=== PATIENT | female | born 1955 | race Caucasian/White ===

== ENCOUNTER 2016-09-25 16:10 | Inpatient (IN) | payer OTHER ==
[~2016-09-25] VITALS: Ht 160 cm; Wt 129.4 kg
[~2016-09-25 16:10] MED LIST: ADVAIR; ADVAIR 100/501 DISK IH; ADVIL200 MG PO; ALAVERT10 MG PO; ALBUTEROL SULF8.5 GM IH; ALEVE220 M2 PO; ALEVE220 MG PO; AMLODIPINE BESY10 MG PO; AMLODIPINE BESYL5 MG PO; ASPIR 8181 M1 PO; ASPIR-TRIN325 M1 PO; ASPIRIN EC325 MG PO; ASPIRIN325 MG PO; AZITHROMYCIN500 M1 PO; BUPROPION XL300 MG; CENTRUM SILVER1 EAC3 PO; CENTRUM SILVER1 EAC4 PO; CIPRO500 MG PO; CIPROFLOXACIN500 M1 PO; CITALOPRAM HBR20 MG PO; CLOTRIMAZOLE10 MG PO; DIOVAN80 MG PO; FLONASE16 G1 BOTH NARES; GABAPENTIN300 MG PO; HYDROCHLOROTHIA25 MG PO; KEFLEX500 MG PO; LANTUS 10100 UNITS/ SC; LANTUS 10100 UNITS/ SQ; LASIX20 MG PO; LEVOFLOXACIN750 MG PO; LISINOPRIL-HCT1 EAC3 PO; LISINOPRIL-HCT1 EACH; LITE COAT ASPI325 M1 PO; LYRICA150 MG PO; MACROBID100 MG PO; MELOXICAM15 MG PO; METFORMIN HCL500 MG PO; MOBIC15 MG PO; MYCOSTATIN 100,60 ML PO; NAPROSYN500 MG PO; NEXIUM20 MG PO; NITROFURANTOIN100 M3 PO; NITROQUICK0.4 MG PO; NORCO 5/3251 TABLET PO; NORVASC10 MG PO; NORVASC5 MG PO; NOVOLOG MI100 UNIT/4 SC; NOVOLOG PE100 UNITS/ SC; NOVOLOG100 UNIT/1 SQ; NYSTATIN15 GM TP; OMEPRAZOLE20 MG PO; OXCARBAZEPINE300 MG PO; PERCOCET 5/31 TABLET PO; PRAVACHOL20 MG PO; PRAVACHOL40 MG PO; PRAVASTATIN SOD20 MG PO; PRAVASTATIN SOD40 MG PO; PREDNISONE20 MG PO; PREDNISONE50 MG PO; PRILO; PRILOSEC20 MG PO; PRINIVIL40 MG PO; PRINZIDE 20-121 EACH PO; PROAIR HFA8.5 GM IH; SALONPAS LARGE1 EACH TD; SYMBICORT60 INHALAT IH; TRAMADOL HCL50 MG; TRAMADOL HCL50 MG PO; TYLENOL ARTHRI650 MG PO; ULTRAM50 MG PO; VALIUM5 MG PO; VENTOLIN HFA18 GM IH; WELLBUTRIN XL300 MG PO; ZANTAC300 MG PO; ZOLPIDEM TARTRAT5 MG
[2016-09-25 16:40] LABS: POINT-OF-CARE METER ID UU13113778
[2016-09-25 19:59] LABS: HEMATOCRIT 48.5 % (36.0-46.0); MCH 28.7 PG (29.0-34.0); MEAN PLAT.VOLUME 11.7 uM^3 (9.5-12.4); PLATELET COUNT 264 K/uL (156-360); RBC DIS.WIDTH-CV 14.3 % (11.8-14.6); RBC DIS.WIDTH-SD 43.1 % (39-53); RED BLOOD COUNT 5.75 M/uL (3.80-5.20)
[2016-09-25 20:00] LABS: MCV 84.3 FL (83-99); WHITE BLOOD COUNT 18.4 K/uL (4.1-10.2)
[2016-09-25 20:12] LABS: CHLORIDE 102 mEq/L (99-109); POTASSIUM 3.6 mEq/L (3.7-5.4); SODIUM 140 mEq/L (136-147)
[2016-09-25 20:15] LABS: GLUCOSE 150 mg/dL (70-99)
[2016-09-25 20:16] LABS: ANION GAP 14 MEQ/L (2-14)
[2016-09-25 20:17] LABS: TOTAL BILIRUBIN 0.7 mg/dL (0.0-1.0)
[2016-09-25 20:18] LABS: ALKALINE PHOSPHATASE 352 IU/L (3-129); D-DIMER ELISA 0.74 mg/L FEU (< 0.57); GFR ESTIMATE (CALCULATED) 32 mL/min/; TROP-I INTERPRETATION NEGATIVE; TROPONIN-I < 0.01 ng/mL (0.0-0.30)
[2016-09-25 20:19] LABS: UREA NITROGEN (BUN) 33 mg/dL (9-23)
[2016-09-25 20:22] LABS: CREATINE KINASE 43 IU/L (1-294); LIPASE 8 U/L (1.0-51.0)
[2016-09-25] MEDS ORDERED: LITE COAT ASPI325 M1 PO (22:07)
[2016-09-25] MEDS ORDERED: CYMBALTA30 MG PO (22:10)
[2016-09-25] MEDS ORDERED: VENTOLIN HFA18 GM IH (22:11)
[2016-09-25] MEDS ORDERED: INCRUSE ELLI62.5 MCG IH (22:11)
[2016-09-25 22:32] LABS: ADD MIUA? YES; BILIRUBIN MODERATE; BLOOD NEGATIVE; COLOR ORANGE ((YELLOW)); GLUCOSE (STRIP) NEGATIVE; KETONES TRACE; LEUKOCYTES MODERATE; NITRITE NEGATIVE; PROTEIN (STRIP) 30; SPECIFIC GRAVITY 1.031 (1.000-1.030)
[2016-09-25 22:42] LABS: ICTOTEST NEGATIVE
[2016-09-25 23:19] LABS: EPITHELIAL CELLS 2+; MUCUS NONE SEEN; WHITE BLOOD CELLS 0-5 /HPF (0-5)
[2016-09-25 23:20] LABS: BACTERIA 2+; CASTS PRESENT /LPF; CRYSTALS NONE SEEN; UCUL ADDED? NO
[2016-09-25 23:22] LABS: YEAST-LIKE CELL > 50
[2016-09-26 01:52] LABS: POINT-OF-CARE METER ID UU13113800
[2016-09-26 01:55] LABS: URIC ACID 9.3 mg/dL (3.1-9.2)
[2016-09-26 03:37] VITALS: BP 116/56
[2016-09-26 07:52] LABS: HEMATOCRIT 40.3 % (36.0-46.0); MCH 29.4 PG (29.0-34.0); MCV 86.5 FL (83-99); RBC DIS.WIDTH-CV 14.2 % (11.8-14.6); RBC DIS.WIDTH-SD 43.6 % (39-53); RED BLOOD COUNT 4.66 M/uL (3.80-5.20); WHITE BLOOD COUNT 11.1 K/uL (4.1-10.2)
[2016-09-26 08:05] VITALS: BP 110/55
[2016-09-26 08:09] LABS: ANION GAP 12 MEQ/L (2-14); CHLORIDE 105 MEQ/L (99-109); GFR ESTIMATE (CALCULATED) 35 mL/min/; POTASSIUM 3.4 MEQ/L (3.7-5.4); SAMPLE HEMOLYSIS CHECK 0; SAMPLE ICTERIC CHECK 0; SAMPLE LIPEMIA CHECK 0; SODIUM 142 MEQ/L (136-147); UREA NITROGEN (BUN) 34 mg/dL (9-23)
[2016-09-26 08:12] LABS: GLUCOSE 85 mg/dL (70-99)
[2016-09-26 08:14] LABS: TROP-I INTERPRETATION NEGATIVE; TROPONIN-I < 0.01 ng/mL (0.0-0.30)
[2016-09-26 13:03] VITALS: BP 112/60
[2016-09-26 14:43] LABS: TROP-I INTERPRETATION NEGATIVE; TROPONIN-I < 0.01 ng/mL (0.0-0.30)
[2016-09-26 17:09] VITALS: BP 124/78
[2016-09-26 19:45] VITALS: BP 108/55
[2016-09-27 00:34] VITALS: BP 134/65
[2016-09-27 04:03] VITALS: BP 123/61
[2016-09-27 04:59] LABS: CHLORIDE 107 mEq/L (99-109); SODIUM 139 mEq/L (136-147)
[2016-09-27 05:02] LABS: ANION GAP 10 MEQ/L (2-14)
[2016-09-27 05:04] LABS: ALKALINE PHOSPHATASE 283 IU/L (3-129)
[2016-09-27 05:06] LABS: UREA NITROGEN (BUN) 24 mg/dL (9-23)
[2016-09-27 05:22] LABS: GLUCOSE 147 mg/dL (70-99)
[2016-09-27 05:36] LABS: GFR ESTIMATE (CALCULATED) > 59 mL/min/; TOTAL BILIRUBIN 0.5 mg/dL (0.0-1.0)
[2016-09-27 08:00] VITALS: BP 121/58
[2016-09-27] MEDS ORDERED: CIPRO250 MG PO (08:08)
[2016-09-27 08:46] LABS: EOSINOPHIL (%) 3.5 % (0-5); EOSINOPHIL COUNT 0.3 K/uL (0-0.3); HEMATOCRIT 41.3 % (36.0-46.0); IMMATURE GRANULOCYTE (%) 0.2 % (0.0-0.7); LYMPHOCYTE COUNT 2.8 K/uL (1.0-2.8); MCH 28.9 PG (29.0-34.0); MCHC 32.9 G/DL (30.0-36.0); MCV 87.9 FL (83-99); MONOCYTE (%) 9.2 % (3-12); MONOCYTE COUNT 0.7 K/uL (0-0.8); NEUTROPHIL (%) 52.2 % (45-76); NEUTROPHIL COUNT 4.2 K/uL (1.8-6.4); RBC DIS.WIDTH-CV 14.3 % (11.8-14.6); RBC DIS.WIDTH-SD 45.6 % (39-53); WHITE BLOOD COUNT 8.1 K/uL (4.1-10.2)
[2016-09-27 12:53] LABS: MEAN PLAT.VOLUME 12.2 uM^3 (9.5-12.4); PLAT.SUFFICIENCY ADEQUATE; PLATELET COUNT 189 K/uL (156-360); USER ID TLW
== END 2016-09-27 10:37 | disposition home health service (06) | DRG 683 ==
LOC: EME 16:10 → EDOF 09-26 01:10 → 2EAST 09-26 02:11
PROVIDERS: Hospitalist; Pediatrics; Physician Assistant
DX: N17.9 Acute kidney failure, unspecified (principal); N39.0 Urinary tract infection, site not specified; E86.0 Dehydration; E87.6 Hypokalemia; E66.01 Morbid (severe) obesity due to excess calories; Z68.43 Body mass index [BMI] 50.0-59.9, adult; E11.9 Type 2 diabetes mellitus without complications; I10 Essential (primary) hypertension; J44.9 Chronic obstructive pulmonary disease, unspecified; F32.9 Major depressive disorder, single episode, unspecified; G89.29 Other chronic pain; M54.30 Sciatica, unspecified side; R07.9 Chest pain, unspecified; R29.6 Repeated falls; R42 Dizziness and giddiness; E78.5 Hyperlipidemia, unspecified; K21.9 Gastro-esophageal reflux disease without esophagitis; R00.0 Tachycardia, unspecified; G47.30 Sleep apnea, unspecified; Z91.19 Patient's noncompliance with other medical treatment and regimen; Z79.4 Long term (current) use of insulin; Z87.891 Personal history of nicotine dependence; Z91.041 Radiographic dye allergy status
CPT/HCPCS: 71020; 71250; 78582; 80048; 80053; 81003; 82436; 82550 91; 82948; 83605; 83690; 84133; 84300; 84484; 84550; 85025; 85027; 85379; 87040; 87086; 87106; 93005; 93970; 94640; 94640 76; 99202; 99281; 99285; A9540; A9567; J0696; J1650; J1815; J7030; J7050

== ENCOUNTER 2017-04-04 10:48 | Emergency (ER) | payer OTHER ==
[~2017-04-04] VITALS: Ht 160 cm; Wt 118.2 kg
[~2017-04-04 10:48] MED LIST changes: +CIPRO250 MG PO; +CYMBALTA30 MG PO; +INCRUSE ELLI62.5 MCG IH
[2017-04-04 11:57] LABS: HEMATOCRIT 43.5 % (36.0-46.0); MCH 29.9 PG (29.0-34.0); MCHC 33.1 G/DL (30.0-36.0); MCV 90.4 FL (83-99); PLATELET COUNT 232 K/uL (156-360); RBC DIS.WIDTH-CV 13.2 % (11.8-14.6); RBC DIS.WIDTH-SD 43.9 % (39-53); RED BLOOD COUNT 4.81 M/uL (3.80-5.20)
[2017-04-04 12:16] LABS: CHLORIDE 101 mEq/L (99-109); POTASSIUM 3.9 mEq/L (3.7-5.4); SODIUM 137 mEq/L (136-147)
[2017-04-04 12:17] LABS: GLUCOSE 276 mg/dL (70-99)
[2017-04-04 12:19] LABS: ANION GAP 14 MEQ/L (2-14)
[2017-04-04 12:21] LABS: GFR ESTIMATE (CALCULATED) 40 mL/min/
[2017-04-04 12:22] LABS: UREA NITROGEN (BUN) 35 mg/dL (9-23)
[2017-04-04 13:44] LABS: TOTAL BILIRUBIN 0.4 mg/dL (0.0-1.0)
[2017-04-04 13:45] LABS: ALKALINE PHOSPHATASE 317 IU/L (3-129)
[2017-04-04 13:48] LABS: DIRECT BILIRUBIN 0.2 mg/dL (0.0-0.3)
[2017-04-04 13:49] LABS: LIPASE 9 U/L (1.0-51.0)
[2017-04-04 13:50] LABS: TROP-I INTERPRETATION NEGATIVE; TROPONIN-I < 0.01 ng/mL (0.0-0.30)
[2017-04-04 17:25] LABS: ADD MIUA? YES; BILIRUBIN NEGATIVE; BLOOD NEGATIVE; COLOR AMBER ((YELLOW)); GLUCOSE (STRIP) 50; KETONES NEGATIVE; LEUKOCYTES MODERATE; NITRITE NEGATIVE; PROTEIN (STRIP) 30; SPECIFIC GRAVITY 1.023 (1.000-1.030); UROBILINOGEN 0.2 MG/DL (0.2-1.0)
[2017-04-04 18:17] LABS: RED BLOOD CELLS RARE /HPF (0-5)
[2017-04-04 18:19] LABS: BACTERIA 1+ /HPF; CASTS NONE SEEN /LPF; CRYSTALS NONE SEEN; EPITHELIAL CELLS 1+ /HPF; MUCUS 1+ /LPF; OTHER BUDDING YEAST; UCUL ADDED? NO; WHITE BLOOD CELLS 30-40 /HPF (0-5)
[2017-04-04 19:45] LABS: CHLORIDE 105 mEq/L (99-109); POTASSIUM 4.2 mEq/L (3.7-5.4); SODIUM 140 mEq/L (136-147)
[2017-04-04 19:47] LABS: GLUCOSE 179 mg/dL (70-99)
[2017-04-04 19:48] LABS: ANION GAP 14 MEQ/L (2-14)
[2017-04-04 19:50] LABS: GFR ESTIMATE (CALCULATED) > 59 mL/min/
[2017-04-04 19:51] LABS: UREA NITROGEN (BUN) 34 mg/dL (9-23)
[2017-04-04] MEDS ORDERED: BACTRIM,SEPT1 TABLET PO (21:59)
[2017-04-04 22:11] VITALS: BP 111/48
== END 2017-04-04 22:12 | disposition home or self-care (01) ==
LOC: EME 10:48 → RME 10:48
PROVIDERS: Emergency Medicine; Physician Assistant Medical
DX: N39.0 Urinary tract infection, site not specified (principal); E86.0 Dehydration; N17.9 Acute kidney failure, unspecified; R42 Dizziness and giddiness; I25.2 Old myocardial infarction; K21.9 Gastro-esophageal reflux disease without esophagitis; J44.9 Chronic obstructive pulmonary disease, unspecified; E11.9 Type 2 diabetes mellitus without complications; Z79.4 Long term (current) use of insulin; Z87.891 Personal history of nicotine dependence
CPT/HCPCS: 70450; 80048; 80048 91; 80076; 81003; 83690; 84484; 85027; 93005; 99281; 99285; J0696; J7030; J7050

== ENCOUNTER 2017-05-29 15:32 | Emergency (ER) | payer OTHER ==
[~2017-05-29] VITALS: Ht 160 cm; Wt 118.1 kg
[~2017-05-29 15:32] MED LIST changes: +BACTRIM,SEPT1 TABLET PO
[2017-05-29 16:01] LABS: POINT-OF-CARE METER ID UU13113702
[2017-05-29 16:24] LABS: POINT-OF-CARE METER ID UU13113702
[2017-05-29 16:40] LABS: POINT-OF-CARE METER ID UU13113702
[2017-05-29 16:54] LABS: BASOPHIL COUNT 0.1 K/uL (0-0.1); EOSINOPHIL (%) 0.5 % (0-5); EOSINOPHIL COUNT 0.1 K/uL (0-0.3); HEMATOCRIT 44.1 % (36.0-46.0); IMMATURE GRANULOCYTE (%) 1.6 % (0.0-0.7); IMMATURE GRANULOCYTE COUNT 0.4 K/uL; INSTRUMENT ABS NEUTROPHIL CT 18.1 K/uL; LYMPHOCYTE COUNT 3.1 K/uL (1.0-2.8); MCH 29.4 PG (29.0-34.0); MCHC 32.4 G/DL (30.0-36.0); MCV 90.6 FL (83-99); MEAN PLAT.VOLUME 10.4 uM^3 (9.5-12.4); MONOCYTE (%) 8.5 % (3-12); NEUTROPHIL (%) 76.1 % (45-76); NEUTROPHIL COUNT 18.1 K/uL (1.8-6.4); PLATELET COUNT 256 K/uL (156-360); RBC DIS.WIDTH-CV 13.3 % (11.8-14.6); RBC DIS.WIDTH-SD 44.8 % (39-53); RED BLOOD COUNT 4.87 M/uL (3.80-5.20); WHITE BLOOD COUNT 23.8 K/uL (4.1-10.2)
[2017-05-29 17:03] LABS: CHLORIDE 104 mEq/L (99-109); POTASSIUM 4.2 mEq/L (3.7-5.4); SODIUM 141 mEq/L (136-147)
[2017-05-29 17:04] LABS: GLUCOSE 159 mg/dL (70-99)
[2017-05-29 17:06] LABS: ANION GAP 15 MEQ/L (2-14)
[2017-05-29 17:08] LABS: GFR ESTIMATE (CALCULATED) 40 mL/min/
[2017-05-29 17:09] LABS: UREA NITROGEN (BUN) 33 mg/dL (9-23)
[2017-05-29 17:33] LABS: POINT-OF-CARE METER ID UU13113702
[2017-05-29 18:37] LABS: POINT-OF-CARE METER ID UU13113702
[2017-05-29 19:07] LABS: ADD MIUA? YES; BILIRUBIN SMALL; BLOOD SMALL; COLOR AMBER ((YELLOW)); GLUCOSE (STRIP) 150; KETONES NEGATIVE; LEUKOCYTES NEGATIVE; NITRITE NEGATIVE; PROTEIN (STRIP) 30; SPECIFIC GRAVITY 1.024 (1.000-1.030)
[2017-05-29 19:14] LABS: BASOPHIL COUNT 0.1 K/uL (0-0.1); EOSINOPHIL (%) 0.8 % (0-5); EOSINOPHIL COUNT 0.2 K/uL (0-0.3); HEMATOCRIT 43.7 % (36.0-46.0); IMMATURE GRANULOCYTE (%) 0.9 % (0.0-0.7); IMMATURE GRANULOCYTE COUNT 0.2 K/uL; INSTRUMENT ABS NEUTROPHIL CT 14.4 K/uL; LYMPHOCYTE COUNT 3.5 K/uL (1.0-2.8); MCH 29.4 PG (29.0-34.0); MCHC 32.7 G/DL (30.0-36.0); MCV 89.7 FL (83-99); MEAN PLAT.VOLUME 10.4 uM^3 (9.5-12.4); MONOCYTE COUNT 1.6 K/uL (0-0.8); NEUTROPHIL (%) 72.3 % (45-76); NEUTROPHIL COUNT 14.4 K/uL (1.8-6.4); PLATELET COUNT 265 K/uL (156-360); RBC DIS.WIDTH-CV 13.4 % (11.8-14.6); RBC DIS.WIDTH-SD 44.4 % (39-53); RED BLOOD COUNT 4.87 M/uL (3.80-5.20); WHITE BLOOD COUNT 19.9 K/uL (4.1-10.2)
[2017-05-29 19:20] LABS: BACTERIA RARE /HPF; BUDDING YEAST 2+; EPITHELIAL CELLS RARE /HPF; HYALINE CASTS 30-40 /LPF; MUCUS TRACE /LPF; RED BLOOD CELLS 0-5 /HPF (0-5); WHITE BLOOD CELLS 0-5 /HPF (0-5)
[2017-05-29 20:37] LABS: POINT-OF-CARE METER ID UU13113702
[2017-05-29 20:42] VITALS: BP 116/63
[2017-05-29] MEDS ORDERED: METFORMIN HCL500 M1 PO (20:45)
[2017-05-29] MEDS ORDERED: CITALOPRAM HBR20 MG PO (20:45)
[2017-05-29] MEDS ORDERED: CETIRIZINE HCL10 M2 PO (20:46)
== END 2017-05-29 20:49 | disposition home or self-care (01) ==
LOC: EME 15:32
PROVIDERS: Emergency Medicine
DX: T38.3X1A Poisoning by insulin and oral hypoglycemic [antidiabetic] drugs, accidental (unintentional), initial encounter (principal); E11.649 Type 2 diabetes mellitus with hypoglycemia without coma; Z79.4 Long term (current) use of insulin; I10 Essential (primary) hypertension; J44.9 Chronic obstructive pulmonary disease, unspecified; Z79.82 Long term (current) use of aspirin; Z87.891 Personal history of nicotine dependence
CPT/HCPCS: 71010; 80048; 81003; 82948; 85025; 85025 91; 99281; 99285

== ENCOUNTER 2017-06-12 14:27 | Emergency (ER) | payer OTHER ==
[~2017-06-12] VITALS: Ht 160 cm; Wt 125.0 kg
[~2017-06-12 14:27] MED LIST changes: +CETIRIZINE HCL10 M2 PO; +METFORMIN HCL500 M1 PO
[2017-06-12 14:50] LABS: POINT-OF-CARE METER ID UU13113778
[2017-06-12 15:27] LABS: POINT-OF-CARE METER ID UU13113702
[2017-06-12 16:06] LABS: EOSINOPHIL (%) 1.1 % (0-5); EOSINOPHIL COUNT 0.1 K/uL (0-0.3); IMMATURE GRANULOCYTE (%) 0.7 % (0.0-0.7); IMMATURE GRANULOCYTE COUNT 0.1 K/uL; INSTRUMENT ABS NEUTROPHIL CT 9.9 K/uL; LYMPHOCYTE COUNT 1.4 K/uL (1.0-2.8); MCH 29.8 PG (29.0-34.0); MCHC 31.9 G/DL (30.0-36.0); MCV 93.4 FL (83-99); MEAN PLAT.VOLUME 10.1 uM^3 (9.5-12.4); MONOCYTE (%) 4.8 % (3-12); MONOCYTE COUNT 0.6 K/uL (0-0.8); NEUTROPHIL COUNT 9.9 K/uL (1.8-6.4); PLATELET COUNT 190 K/uL (156-360); RBC DIS.WIDTH-CV 13.9 % (11.8-14.6); RBC DIS.WIDTH-SD 47.4 % (39-53); RED BLOOD COUNT 3.96 M/uL (3.80-5.20); WHITE BLOOD COUNT 12.1 K/uL (4.1-10.2)
[2017-06-12 16:12] LABS: CHLORIDE 108 mEq/L (99-109); POTASSIUM 5.6 mEq/L (3.7-5.4); SODIUM 140 mEq/L (136-147)
[2017-06-12 16:14] LABS: GLUCOSE 259 mg/dL (70-99)
[2017-06-12 16:15] LABS: ANION GAP 11 MEQ/L (2-14)
[2017-06-12 16:16] LABS: TOTAL BILIRUBIN 0.3 mg/dL (0.0-1.0)
[2017-06-12 16:17] LABS: ALKALINE PHOSPHATASE 492 IU/L (3-129)
[2017-06-12 16:18] LABS: GFR ESTIMATE (CALCULATED) 48 mL/min/
[2017-06-12 16:19] LABS: UREA NITROGEN (BUN) 28 mg/dL (9-23)
[2017-06-12 16:26] LABS: TROP-I INTERPRETATION NEGATIVE; TROPONIN-I < 0.01 ng/mL (0.0-0.30)
[2017-06-12 19:36] LABS: ADD MIUA? YES; BILIRUBIN NEGATIVE; BLOOD NEGATIVE; COLOR YELLOW ((YELLOW)); GLUCOSE (STRIP) 150; KETONES NEGATIVE; LEUKOCYTES TRACE; NITRITE NEGATIVE; PROTEIN (STRIP) NEGATIVE; SPECIFIC GRAVITY 1.025 (1.000-1.030)
[2017-06-12 20:19] LABS: POINT-OF-CARE METER ID UU13113702
[2017-06-12 20:19] LABS: BACTERIA 1+ /HPF; EPITHELIAL CELLS 1+ /HPF; MUCUS TRACE /LPF; RED BLOOD CELLS NONE SEEN /HPF (0-5); UCUL ADDED? NO; WHITE BLOOD CELLS RARE /HPF (0-5)
[2017-06-12 20:20] LABS: CASTS PRESENT /LPF; CRYSTALS NONE SEEN; HYALINE CASTS 0-5 /LPF
[2017-06-12] MEDS ORDERED: LEVAQUIN500 MG PO (21:12)
[2017-06-12 21:30] VITALS: BP 113/68
== END 2017-06-12 21:31 | disposition home or self-care (01) ==
LOC: EME 14:27
PROVIDERS: Emergency Medicine
DX: E11.649 Type 2 diabetes mellitus with hypoglycemia without coma (principal); N39.0 Urinary tract infection, site not specified; I25.2 Old myocardial infarction; Z86.74 Personal history of sudden cardiac arrest; I10 Essential (primary) hypertension; K21.9 Gastro-esophageal reflux disease without esophagitis; J44.9 Chronic obstructive pulmonary disease, unspecified; F41.9 Anxiety disorder, unspecified; F32.9 Major depressive disorder, single episode, unspecified; Z86.73 Personal history of transient ischemic attack (TIA), and cerebral infarction without residual deficits; Z79.4 Long term (current) use of insulin; Z87.891 Personal history of nicotine dependence
CPT/HCPCS: 74176; 80053; 81003; 82948; 84484; 85025; 87651 90; 93005; 99281; 99285; J7030

== ENCOUNTER 2017-09-18 18:40 | Emergency (ER) | payer OTHER ==
[~2017-09-18] VITALS: Ht 160 cm; Wt 130.4 kg
[~2017-09-18 18:40] MED LIST changes: +GABAPENTIN600 MG PO; +LEVAQUIN500 MG PO; +METHOCARBAMOL500 MG PO; +MIDODRINE HCL5 MG PO; +MYCELEX10 MG PO; +NOVOLOG 10100 UNITS/ SC; +VITAMIN B-12250 MCG PO; +VITAMIN D32000 UNI1 PO
[2017-09-18 22:41] LABS: BASOPHIL (%) 0.5 % (0-1); BASOPHIL COUNT 0.1 K/uL (0-0.1); EOSINOPHIL (%) 3.1 % (0-5); EOSINOPHIL COUNT 0.6 K/uL (0-0.3); HEMATOCRIT 41.6 % (36.0-46.0); HEMOGLOBIN 13.6 G/DL (11.9-15.5); IMMATURE GRANULOCYTE (%) 0.8 % (0.0-0.7); LYMPHOCYTE (%) 28.6 % (15-42); LYMPHOCYTE COUNT 5.4 K/uL (1.0-2.8); MCH 29.2 PG (29.0-34.0); MCHC 32.7 G/DL (30.0-36.0); MCV 89.3 FL (83-99); MONOCYTE (%) 5.6 % (3-12); MONOCYTE COUNT 1.1 K/uL (0-0.8); NEUTROPHIL (%) 61.4 % (45-76); NEUTROPHIL COUNT 11.6 K/uL (1.8-6.4); PLATELET COUNT 252 K/uL (156-360); RBC DIS.WIDTH-CV 14.3 % (11.8-14.6); RBC DIS.WIDTH-SD 46.5 % (39-53); RED BLOOD COUNT 4.66 M/uL (3.80-5.20); WHITE BLOOD COUNT 18.9 K/uL (4.1-10.2)
[2017-09-18 22:54] LABS: CHLORIDE 103 mEq/L (99-109); POTASSIUM 4.2 mEq/L (3.7-5.4); SODIUM 139 mEq/L (136-147)
[2017-09-18 22:54] LABS: APPEARANCE SL.HAZY ((CLEAR)); BILIRUBIN SMALL; BLOOD NEGATIVE; COLOR AMBER ((YELLOW)); GLUCOSE (STRIP) NEGATIVE; KETONES NEGATIVE; LEUKOCYTES NEGATIVE; NITRITE NEGATIVE; PROTEIN (STRIP) NEGATIVE; SPECIFIC GRAVITY 1.026 (1.000-1.030)
[2017-09-18 22:56] LABS: GLUCOSE 158 mg/dL (70-99)
[2017-09-18 23:00] LABS: CREATININE 2.1 mg/dL (0.6-1.3); GFR ESTIMATE (CALCULATED) 25 mL/min/
[2017-09-18 23:01] LABS: UREA NITROGEN (BUN) 44 mg/dL (9-23)
[2017-09-18 23:18] LABS: BACTERIA 1+ /HPF; EPITHELIAL CELLS 2+ /HPF; MUCUS 1+ /LPF; RED BLOOD CELLS 0-5 /HPF (0-5); WHITE BLOOD CELLS 0-5 /HPF (0-5)
[2017-09-18 23:19] LABS: AMORPHOUS URATES CRYSTALS 2+
[2017-09-19] MEDS ORDERED: BACTRIM,SEPT1 TABLET PO (01:23)
[2017-09-19] MEDS ORDERED: KEFLEX500 MG PO (01:23)
[2017-09-19 01:31] VITALS: BP 96/72
== END 2017-09-19 01:32 | disposition home or self-care (01) ==
LOC: EME 18:40
PROVIDERS: Physician Assistant
DX: N28.9 Disorder of kidney and ureter, unspecified (principal); E86.0 Dehydration; S30.811A Abrasion of abdominal wall, initial encounter; L08.9 Local infection of the skin and subcutaneous tissue, unspecified; R07.89 Other chest pain; X58.XXXA Exposure to other specified factors, initial encounter; E11.9 Type 2 diabetes mellitus without complications; I11.0 Hypertensive heart disease with heart failure; I50.9 Heart failure, unspecified; Z79.4 Long term (current) use of insulin; E66.01 Morbid (severe) obesity due to excess calories; Z68.43 Body mass index [BMI] 50.0-59.9, adult; J44.9 Chronic obstructive pulmonary disease, unspecified; I25.2 Old myocardial infarction; F32.9 Major depressive disorder, single episode, unspecified; F41.9 Anxiety disorder, unspecified; K21.9 Gastro-esophageal reflux disease without esophagitis; Z86.74 Personal history of sudden cardiac arrest; Z86.73 Personal history of transient ischemic attack (TIA), and cerebral infarction without residual deficits; Z79.82 Long term (current) use of aspirin; Z88.8 Allergy status to other drugs, medicaments and biological substances; Z87.891 Personal history of nicotine dependence
CPT/HCPCS: 71250; 74176; 80048; 81003; 83605; 85025 91; 87040; 99281; 99284

== ENCOUNTER 2017-11-05 13:23 | Emergency (ER) | payer OTHER ==
[~2017-11-05] VITALS: Ht 160 cm; Wt 131.5 kg
[2017-11-05 17:53] LABS: HEMATOCRIT 36.1 % (36.0-46.0); MCH 30.3 PG (29.0-34.0); MCHC 33.2 G/DL (30.0-36.0); MCV 91.2 FL (83-99); PLATELET COUNT 170 K/uL (156-360); RBC DIS.WIDTH-CV 14.9 % (11.8-14.6); RED BLOOD COUNT 3.96 M/uL (3.80-5.20); WHITE BLOOD COUNT 9.5 K/uL (4.1-10.2)
[2017-11-05 18:02] LABS: ALBUMIN 3.5 g/dL (3.2-4.8); CHLORIDE 102 mEq/L (99-109); POTASSIUM 4.1 mEq/L (3.7-5.4); SODIUM 138 mEq/L (136-147)
[2017-11-05 18:04] LABS: GLUCOSE 273 mg/dL (70-99)
[2017-11-05 18:06] LABS: TOTAL BILIRUBIN 0.3 mg/dL (0.0-1.0)
[2017-11-05 18:08] LABS: ALKALINE PHOSPHATASE 373 IU/L (3-129); CREATININE 0.9 mg/dL (0.6-1.3); GFR ESTIMATE (CALCULATED) > 59 mL/min/
[2017-11-05 18:09] LABS: UREA NITROGEN (BUN) 16 mg/dL (9-23)
[2017-11-05 18:10] LABS: AST (GOT) 22 IU/L (2-34)
[2017-11-05 18:11] LABS: ALT (GPT) 22 IU/L (3-49)
[2017-11-05 18:16] LABS: TROP-I INTERPRETATION NEGATIVE; TROPONIN-I 0.01 ng/mL (0.0-0.30)
[2017-11-05 19:56] LABS: APPEARANCE SL.HAZY ((CLEAR)); BILIRUBIN NEGATIVE; BLOOD SMALL; COLOR YELLOW ((YELLOW)); GLUCOSE (STRIP) >=500; KETONES NEGATIVE; LEUKOCYTES MODERATE; NITRITE NEGATIVE; PROTEIN (STRIP) NEGATIVE; SPECIFIC GRAVITY 1.028 (1.000-1.030); UROBILINOGEN 0.2 MG/DL (0.2-1.0)
[2017-11-05 20:26] LABS: BACTERIA 2+ /HPF; EPITHELIAL CELLS 2+ /HPF; MUCUS NONE SEEN /LPF; OTHER BUDDING YEAST; UCUL ADDED? YES; WHITE BLOOD CELLS 15-20 /HPF (0-5)
[2017-11-05] MEDS ORDERED: MOTRIN600 MG PO (20:59)
[2017-11-05] MEDS ORDERED: KEFLEX500 MG PO (20:59)
[2017-11-05 21:13] VITALS: BP 154/91
== END 2017-11-05 21:14 | disposition home or self-care (01) ==
LOC: EME 13:23
PROVIDERS: Physician Assistant
DX: S06.0X0A Concussion without loss of consciousness, initial encounter (principal); R10.12 Left upper quadrant pain; M79.1 Myalgia; W01.0XXA Fall on same level from slipping, tripping and stumbling without subsequent striking against object, initial encounter; E11.9 Type 2 diabetes mellitus without complications; Z79.4 Long term (current) use of insulin; Z79.82 Long term (current) use of aspirin; I11.0 Hypertensive heart disease with heart failure; I50.9 Heart failure, unspecified; J44.9 Chronic obstructive pulmonary disease, unspecified; K21.9 Gastro-esophageal reflux disease without esophagitis; Z86.74 Personal history of sudden cardiac arrest; F32.9 Major depressive disorder, single episode, unspecified; F41.9 Anxiety disorder, unspecified; Z87.891 Personal history of nicotine dependence
CPT/HCPCS: 70450; 71046; 74177; 80053; 81003; 84484; 85027; 87086; 93005; 99281; 99284; J7030

== ENCOUNTER 2017-12-17 13:43 | Inpatient (IN) | payer OTHER ==
[~2017-12-17] VITALS: Ht 160 cm; Wt 124.5 kg
[~2017-12-17 13:43] MED LIST changes: -CYMBALTA30 MG PO; +CYMBALTA60 MG PO; +MOTRIN600 MG PO; -VITAMIN B-12250 MCG PO; +VITAMIN B-122500 MCG SL
[2017-12-17 15:13] LABS: BASOPHIL (%) 0.6 % (0-1); BASOPHIL COUNT 0.1 K/uL (0-0.1); EOSINOPHIL (%) 1.7 % (0-5); EOSINOPHIL COUNT 0.2 K/uL (0-0.3); HEMATOCRIT 43.2 % (36.0-46.0); HEMOGLOBIN 14.5 G/DL (11.9-15.5); IMMATURE GRANULOCYTE (%) 0.4 % (0.0-0.7); LYMPHOCYTE (%) 30.5 % (15-42); LYMPHOCYTE COUNT 4.4 K/uL (1.0-2.8); MCH 29.2 PG (29.0-34.0); MCHC 33.6 G/DL (30.0-36.0); MCV 86.9 FL (83-99); MONOCYTE (%) 5.9 % (3-12); MONOCYTE COUNT 0.9 K/uL (0-0.8); NEUTROPHIL (%) 60.9 % (45-76); NEUTROPHIL COUNT 8.9 K/uL (1.8-6.4); PLATELET COUNT 215 K/uL (156-360); RBC DIS.WIDTH-CV 13.2 % (11.8-14.6); RBC DIS.WIDTH-SD 41.9 % (39-53); RED BLOOD COUNT 4.97 M/uL (3.80-5.20); WHITE BLOOD COUNT 14.5 K/uL (4.1-10.2)
[2017-12-17 15:22] LABS: ALBUMIN 3.7 g/dL (3.2-4.8); CHLORIDE 96 mEq/L (99-109); POTASSIUM 3.8 mEq/L (3.7-5.4); SODIUM 135 mEq/L (136-147)
[2017-12-17 15:25] LABS: TOTAL PROTEIN 6.2 g/dL (6.4-8.3)
[2017-12-17 15:27] LABS: TOTAL BILIRUBIN 0.5 mg/dL (0.0-1.0)
[2017-12-17 15:28] LABS: ALKALINE PHOSPHATASE 335 IU/L (3-129); CREATININE 1.4 mg/dL (0.6-1.3); GFR ESTIMATE (CALCULATED) 40 mL/min/
[2017-12-17 15:29] LABS: UREA NITROGEN (BUN) 23 mg/dL (9-23)
[2017-12-17 15:30] LABS: AST (GOT) 14 IU/L (2-34)
[2017-12-17 15:31] LABS: ALT (GPT) 14 IU/L (3-49)
[2017-12-17 15:32] LABS: LIPASE 9 U/L (1.0-51.0)
[2017-12-17 15:34] LABS: TROP-I INTERPRETATION NEGATIVE; TROPONIN-I 0.02 ng/mL (0.0-0.30)
[2017-12-17 15:37] LABS: GLUCOSE 413 mg/dL (70-99)
[2017-12-17 19:44] LABS: APPEARANCE CLOUDY ((CLEAR)); BILIRUBIN NEGATIVE; BLOOD SMALL; COLOR YELLOW ((YELLOW)); GLUCOSE (STRIP) >=500; KETONES 5; LEUKOCYTES MODERATE; NITRITE NEGATIVE; PROTEIN (STRIP) 30; UROBILINOGEN 0.2 MG/DL (0.2-1.0)
[2017-12-17 20:10] LABS: BACTERIA 3+ /HPF; EPITHELIAL CELLS 1+ /HPF; MUCUS NONE SEEN /LPF; UCUL ADDED? YES; WHITE BLOOD CELLS TNTC /HPF (0-5)
[2017-12-17] MEDS ORDERED: DESYREL100 MG PO (21:13)
[2017-12-17] MEDS ORDERED: FLEXERIL10 MG PO (21:13)
[2017-12-17 22:17] LABS: TROP-I INTERPRETATION NEGATIVE; TROPONIN-I < 0.01 ng/mL (0.0-0.30)
[2017-12-17 22:30] VITALS: BP 119/55
[2017-12-18 04:21] VITALS: BP 94/58
[2017-12-18 05:38] LABS: HEMATOCRIT 38.9 % (36.0-46.0); HEMOGLOBIN 12.5 G/DL (11.9-15.5); MCH 28.7 PG (29.0-34.0); MCHC 32.1 G/DL (30.0-36.0); MCV 89.2 FL (83-99); PLATELET COUNT 174 K/uL (156-360); RBC DIS.WIDTH-CV 13.3 % (11.8-14.6); RBC DIS.WIDTH-SD 43.8 % (39-53); RED BLOOD COUNT 4.36 M/uL (3.80-5.20); WHITE BLOOD COUNT 10.8 K/uL (4.1-10.2)
[2017-12-18 05:55] LABS: TROP-I INTERPRETATION NEGATIVE; TROPONIN-I < 0.01 ng/mL (0.0-0.30)
[2017-12-18 06:01] LABS: CHLORIDE 99 MEQ/L (99-109); CREATININE 1.4 MG/DL (0.6-1.3); GFR ESTIMATE (CALCULATED) 40 mL/min/; POTASSIUM 3.6 MEQ/L (3.7-5.4); SODIUM 136 MEQ/L (136-147); UREA NITROGEN (BUN) 26 mg/dL (9-23)
[2017-12-18 06:03] LABS: GLUCOSE 439 mg/dL (70-99)
[2017-12-18 07:41] VITALS: BP 100/59
[2017-12-18 11:01] VITALS: BP 96/51
[2017-12-18 16:07] VITALS: BP 92/52
[2017-12-18 18:27] LABS: PTT 29.8 SEC (25-37)
[2017-12-18 19:02] LABS: IRON 35 MCG/DL (35-150); TRANSFERRIN (TIBC) 242.3 mg/dL (215-380); TRANSFERRIN SATUR. 14 % (20-55)
[2017-12-18 19:15] LABS: FERRITIN 93 NG/ML (10-291)
[2017-12-18 21:18] VITALS: BP 100/60
[2017-12-18 23:30] VITALS: BP 95/52
[2017-12-19] VITALS (7 sets, daily range): BP systolic 90–113; BP diastolic 50–65
[2017-12-19 12:33] LABS: GLUCOSE 386 mg/dL (70-99)
[2017-12-20 03:52] VITALS: BP 101/56
[2017-12-20 07:58] VITALS: BP 98/53
[2017-12-20 07:59] LABS: POTASSIUM 4.2 MEQ/L (3.7-5.4)
[2017-12-20 08:05] LABS: CHLORIDE 100 MEQ/L (99-109); CREATININE 1.9 MG/DL (0.6-1.3); GFR ESTIMATE (CALCULATED) 28 mL/min/; GLUCOSE 201 mg/dL (70-99); SODIUM 133 MEQ/L (136-147); UREA NITROGEN (BUN) 35 mg/dL (9-23)
[2017-12-20 11:39] VITALS: BP 127/60
[2017-12-20 13:18] LABS: HCV RNA (IU/mL) <15 IU/mL (())
[2017-12-20 15:49] VITALS: BP 117/53
[2017-12-20 19:24] VITALS: BP 91/54
[2017-12-20 21:07] LABS: TROP-I INTERPRETATION NEGATIVE; TROPONIN-I < 0.01 ng/mL (0.0-0.30)
[2017-12-20 23:18] VITALS: BP 98/53
[2017-12-21 02:48] LABS: TROP-I INTERPRETATION NEGATIVE; TROPONIN-I < 0.01 ng/mL (0.0-0.30)
[2017-12-21 04:10] VITALS: BP 99/55
[2017-12-21 06:26] LABS: CHLORIDE 106 MEQ/L (99-109); GFR ESTIMATE (CALCULATED) 44 mL/min/; POTASSIUM 4.6 MEQ/L (3.7-5.4); SODIUM 137 MEQ/L (136-147); UREA NITROGEN (BUN) 32 mg/dL (9-23)
[2017-12-21 06:27] LABS: CREATININE 1.3 MG/DL (0.6-1.3); GLUCOSE 95 mg/dL (70-99)
[2017-12-21 08:19] VITALS: BP 105/71
[2017-12-21 12:00] VITALS: BP 136/73
[2017-12-21 12:08] LABS: HCV RNA (LOG IU/mL) <1.18 (())
[2017-12-21 16:34] VITALS: BP 143/79
[2017-12-21 20:29] VITALS: BP 97/52
[2017-12-22 00:21] VITALS: BP 96/54
[2017-12-22 05:13] VITALS: BP 98/50
[2017-12-22 08:37] VITALS: BP 173/71
[2017-12-22 12:06] VITALS: BP 126/60
[2017-12-22] MEDS ORDERED: BENTYL20 MG PO (12:40)
[2017-12-22] MEDS ORDERED: AMLODIPINE BESYL5 MG PO (12:41)
[2017-12-22] MEDS ORDERED: NOVOLOG 10100 UNITS/ SC (12:45)
[2017-12-22] MEDS ORDERED: LEVEMIR100 UNIT/2 SC (12:45)
[2017-12-22] MEDS ORDERED: GLIPIZIDE10 MG PO (12:45)
[2017-12-22] MEDS ORDERED: TRAMADOL HCL50 MG PO (12:51)
[2017-12-22] MEDS ORDERED: GABAPENTIN300 MG PO (13:14)
[2017-12-22 15:00] VITALS: BP 125/78
[2017-12-22 18:12] LABS: MITOCHONDRIAL (M2) ANTIBODIES+ <=20.0 U (<=20.0)
== END 2017-12-22 15:30 | DRG 690 ==
LOC: EME 13:43 → EDOF 20:44 → 3EAST 20:44 → ENRESERV 20:47 → 3EAST 22:15
PROVIDERS: Emergency Medicine; Hospitalist; Internal Medicine; Nurse Practitioner Adult Health; Specialist
DX: N12 Tubulo-interstitial nephritis, not specified as acute or chronic (principal); E87.2 Acidosis; N17.9 Acute kidney failure, unspecified; E86.0 Dehydration; R13.10 Dysphagia, unspecified; E11.22 Type 2 diabetes mellitus with diabetic chronic kidney disease; E11.65 Type 2 diabetes mellitus with hyperglycemia; I12.9 Hypertensive chronic kidney disease with stage 1 through stage 4 chronic kidney disease, or unspecified chronic kidney disease; N18.3 Chronic kidney disease, stage 3 (moderate); I25.10 Atherosclerotic heart disease of native coronary artery without angina pectoris; K21.9 Gastro-esophageal reflux disease without esophagitis; J44.9 Chronic obstructive pulmonary disease, unspecified; K70.9 Alcoholic liver disease, unspecified; F31.9 Bipolar disorder, unspecified; G89.29 Other chronic pain; M54.9 Dorsalgia, unspecified; F10.10 Alcohol abuse, uncomplicated; K92.1 Melena; E66.01 Morbid (severe) obesity due to excess calories; Z68.42 Body mass index [BMI] 45.0-49.9, adult; Z86.74 Personal history of sudden cardiac arrest; Z91.19 Patient's noncompliance with other medical treatment and regimen; I25.2 Old myocardial infarction; Z87.891 Personal history of nicotine dependence; Z79.4 Long term (current) use of insulin; Z79.51 Long term (current) use of inhaled steroids; Z79.82 Long term (current) use of aspirin; Z86.73 Personal history of transient ischemic attack (TIA), and cerebral infarction without residual deficits
CPT/HCPCS: 71046; 74176; 74220; 80048; 80053; 81003; 82140; 82390; 82728; 82948; 83540; 83605; 83690; 84466; 84484; 84999; 85025; 85027; 85610; 85730; 86256 90; 87040; 87086; 87522 90; 93005; 94640 76; 97530 GP; 99202; 99281; 99285; J0696; J1650; J1815; J3010; J7030

== ENCOUNTER 2018-02-24 14:50 | Observation (INO) | payer OTHER ==
[~2018-02-24] VITALS: Ht 160 cm; Wt 137.2 kg
[~2018-02-24 14:50] MED LIST changes: +ADVIL,NUPRIN,M200 MG PO; +ALBUTEROL2.5 MG/3 M IH; +ANTIVERT25 MG PO; +AUGMENTIN875 MG PO; +BENTYL20 MG PO; +CELEXA20 MG PO; +DESYREL100 MG PO; +FLEXERIL10 MG PO; +GLIPIZIDE10 MG PO; +GLUCOTROL5 MG PO; +LEVEMIR100 UNIT/2 SC; +LIPITOR40 MG PO; +NEURONTIN600 MG PO; +NITROSTAT0.4 MG SL; +PROAMATINE5 MG PO
[2018-02-24 15:47] LABS: HEMATOCRIT 35.2 % (36.0-46.0); HEMOGLOBIN 11.4 G/DL (11.9-15.5); MCH 26.8 PG (29.0-34.0); MCHC 32.4 G/DL (30.0-36.0); MCV 82.8 FL (83-99); PLATELET COUNT 208 K/uL (156-360); RBC DIS.WIDTH-CV 14.5 % (11.8-14.6); RBC DIS.WIDTH-SD 43.6 % (39-53); RED BLOOD COUNT 4.25 M/uL (3.80-5.20); WHITE BLOOD COUNT 11.6 K/uL (4.1-10.2)
[2018-02-24 16:03] LABS: CHLORIDE 105 mEq/L (99-109); POTASSIUM 3.9 mEq/L (3.7-5.4); SODIUM 142 mEq/L (136-147)
[2018-02-24 16:05] LABS: GLUCOSE 121 mg/dL (70-99)
[2018-02-24 16:09] LABS: CREATININE 0.8 mg/dL (0.6-1.3); GFR ESTIMATE (CALCULATED) > 59 mL/min/
[2018-02-24 16:15] LABS: TROP-I INTERPRETATION NEGATIVE; TROPONIN-I < 0.01 ng/mL (0.0-0.30)
[2018-02-24 16:17] LABS: ALBUMIN 3.5 g/dL (3.2-4.8)
[2018-02-24 16:22] LABS: TOTAL BILIRUBIN 0.3 mg/dL (0.0-1.0)
[2018-02-24 16:23] LABS: ALKALINE PHOSPHATASE 258 IU/L (3-129)
[2018-02-24 16:24] LABS: UREA NITROGEN (BUN) 12 mg/dL (9-23)
[2018-02-24 16:25] LABS: AST (GOT) 23 IU/L (2-34); DIRECT BILIRUBIN 0.2 mg/dL (0.0-0.3)
[2018-02-24 16:26] LABS: ALT (GPT) 18 IU/L (3-49)
[2018-02-24 16:27] LABS: LIPASE 8 U/L (1.0-51.0)
[2018-02-24 19:43] VITALS: BP 132/60
[2018-02-24 22:24] LABS: TROP-I INTERPRETATION NEGATIVE; TROPONIN-I 0.01 ng/mL (0.0-0.30)
[2018-02-25 00:22] VITALS: BP 126/58
[2018-02-25 04:14] VITALS: BP 130/62
[2018-02-25 05:12] LABS: HEMATOCRIT 35.8 % (36.0-46.0); HEMOGLOBIN 11.1 G/DL (11.9-15.5); MCH 25.9 PG (29.0-34.0); MCV 83.6 FL (83-99); PLATELET COUNT 234 K/uL (156-360); RBC DIS.WIDTH-CV 14.4 % (11.8-14.6); RBC DIS.WIDTH-SD 43.8 % (39-53); RED BLOOD COUNT 4.28 M/uL (3.80-5.20); WHITE BLOOD COUNT 9.9 K/uL (4.1-10.2)
[2018-02-25 05:29] LABS: TROP-I INTERPRETATION NEGATIVE; TROPONIN-I < 0.01 ng/mL (0.0-0.30)
[2018-02-25 05:33] LABS: CHLORIDE 104 MEQ/L (99-109); CREATININE 0.9 MG/DL (0.6-1.3); GFR ESTIMATE (CALCULATED) > 59 mL/min/; SODIUM 141 MEQ/L (136-147); UREA NITROGEN (BUN) 14 mg/dL (9-23)
[2018-02-25 05:40] LABS: GLUCOSE 258 mg/dL (70-99)
[2018-02-25 06:53] VITALS: BP 112/57
[2018-02-25] MEDS ORDERED: NORVASC5 MG PO (08:04)
[2018-02-25] MEDS ORDERED: METOPROLOL TART25 MG PO (08:05)
== END 2018-02-25 09:17 | disposition home or self-care (01) ==
LOC: EME 14:50 → EDOF 17:02 → ENRESERV 17:41 → 4SOUTH 19:32 → ENPENDDIS 02-25 08:02 → 4SOUTH 02-25 09:17
PROVIDERS: Hospitalist
DX: R07.9 Chest pain, unspecified (principal); E11.65 Type 2 diabetes mellitus with hyperglycemia; E78.5 Hyperlipidemia, unspecified; I11.0 Hypertensive heart disease with heart failure; I50.32 Chronic diastolic (congestive) heart failure; G47.33 Obstructive sleep apnea (adult) (pediatric); J44.9 Chronic obstructive pulmonary disease, unspecified; G89.29 Other chronic pain; E66.01 Morbid (severe) obesity due to excess calories; K21.9 Gastro-esophageal reflux disease without esophagitis; F41.9 Anxiety disorder, unspecified; F32.9 Major depressive disorder, single episode, unspecified; Z90.49 Acquired absence of other specified parts of digestive tract; Z90.710 Acquired absence of both cervix and uterus; Z82.49 Family history of ischemic heart disease and other diseases of the circulatory system; Z79.4 Long term (current) use of insulin; Z79.82 Long term (current) use of aspirin; I25.10 Atherosclerotic heart disease of native coronary artery without angina pectoris; Z88.1 Allergy status to other antibiotic agents; Z91.041 Radiographic dye allergy status; Z88.8 Allergy status to other drugs, medicaments and biological substances; Z86.74 Personal history of sudden cardiac arrest; I25.2 Old myocardial infarction; Z87.891 Personal history of nicotine dependence
CPT/HCPCS: 71046; 80048; 80076; 82948; 83690; 84484; 85027; 93005; 99281; 99285; G0378; J1644; J2405; J3010; J7040; S0028